=== PATIENT | male | born 1970 | race Caucasian/White ===

== ENCOUNTER 2019-09-11 14:43 | Emergency (ER) | payer OTHER, SELFPAY ==
--- NOTE | 2019-09-11 14:42 | ECG_ITS ---
APPROVED REPORT Exam: Resting ECG HR:72 bpm ECG Measurements Heart Rate 72 AXES OK 124 P 35 QRSd 98 QRS -8 QT 388 T 24 QTc 424 <Conclusion> Sinus rhythm with sinus arrhythmia with occasional premature ventricular complexes Incomplete RBBB Otherwise normal ECG Electronically signed by : Bi Bernard, 09/12/2019 08:57:03
[2019-09-11 14:45] VITALS: BP 135/90; PULSE 71; RESP 16; TEMP 36.6; O2SAT 98; BMI 41.8
--- NOTE | 2019-09-11 14:52 | XR_ITS ---
PROCEDURE: XR CHEST PORTABLE CLINICAL HISTORY: chest pain , Nonsmoker COMPARISON: CXR CHEST(2 VIEWS-NOT PORTABLE) from 08/22/2015 FINDINGS: The cardiomediastinal silhouette and pulmonary vascularity are within normal limits. The lungs are clear without infiltrates, suspicious nodules, or pleural effusions. No acute bony abnormalities. IMPRESSION: No acute findings. Dictated by: Dr. Jelani Law MD 09/11/2019 16:[address] Jelani Law MD in [facility] 09/11/2019 16:03
[2019-09-11 14:57] VITALS: BP 135/95; PULSE 84; O2SAT 95
--- NOTE | 2019-09-11 14:57 | [facility].EDCP ---
ED Disposition Clinical Impression: Aortic dissection Qualifiers: Aortic location: thoracic aorta Qualified Code(s): I71.01 - Dissection of thoracic aorta Chest pain Qualifiers: Chest pain type: precordial pain Qualified Code(s): R07.2 - Precordial pain Disposition: Xfer Short-Term Hosp Condition on Discharge: Critical - Critical Care Critical Care Time: Yes Attestation: On 09/11/19, the high probability of a clinically significant, sudden or life threatening deterioration of the following system(s) required my full and direct attention, intervention and personal management. The time I documented below is in addition to time spent performing reported procedures but includes the following listed in this critical care notation. Total Critical Care Time: 40 Vital system(s) involved:: Circulatory Failure, Central Nervous System, Metabolic Failure, Respiratory Failure, Renal Failure, Shock (Hemorrhage) My critical care processes included: Assessment & monitoring of V/S, Initial and Re-exams, Data Review/Interpretation, Coordinating Care, Medication Orders and management, Documentation Medical Decision Making - Medical Records Medical records reviewed: Yes: I reviewed the patient's medical records. - [place] Inquiry Pt receiving controlled substance: No Vital Signs: 09/11/19 14:45 09/11/19 14:57 09/11/19 16:14 Temperature 98 F Temperature Source Oral Pulse Rate [Left Radial] 71 84 65 Respiratory Rate 16 Blood Pressure [Right Arm] 135/90 135/95 H 113/74 Blood Pressure Mean [Right Arm] 105 108 87 Blood Pressure Source [Right Arm] Automatic Cuff Automatic Cuff Blood Pressure Position [Right Arm] Sitting Sitting Sitting 02 Sat by Pulse Oximetry 98 95 97 Oxygen Delivery Method Room Air Room Air Room Air 09/11/19 16:32 09/11/19 16:33 Temperature Temperature Source Pulse Rate [Left Radial] 70 78 Respiratory Rate Blood Pressure [Right Arm] 140/89 140/89 Blood Pressure Mean [Right Arm] 106 106 Blood Pressure Source [Right Arm] Automatic Cuff Blood Pressure Position [Right Arm] Sitting Sitting 02 Sat by Pulse Oximetry 97 99 Oxygen Delivery Method Room Air Room Air - Lab Data Lab Results 09/11/19 14:45: WBC 7.3, RBC 5.11, Hgb 15.2, Hct 44.6, MCV 87.3, MCH 29.7, MCHC 34.1, RDW 14.0, Plt Count 215, MPV 7.7, Neut % (Auto) 67.7, Lymph % (Auto) 25.5, [place] % (Auto) 4.1, Eos % (Auto) 2.1, Baso % (Auto) 0.6, Neut # (Auto) 4.9, Lymph # (Auto) 1.9, [place] # (Auto) 0.3, Eos # (Auto) 0.2, Baso # (Auto) 0.0 09/11/19 14:45: Sodium 139, Potassium 4.2, Chloride 104, Carbon Dioxide 30, Anion Gap 9.2, BUN 18, Creatinine 1.10, Estimated Creat Clear 82, Estimated GFR 71, Est GFR ( Amer) 86, Glucose 119 H, Calcium 9.1, Troponin I < 0.01 Result diagrams: 09/11/19 14:45 09/11/19 14:45 Orders (Tests/Meds): ED MEDICATIONS Discontinued Medications Generic Name Dose Route Start Last Admin Trade Name Freq PRN Reason Stop Dose Admin Aspirin 324 mg 09/11/19 14:53 09/11/19 14:55 Aspirin 81mg Chewable Tablet PO 09/11/19 14:54 324 mg ONCE ONE Administration Ioversol 100 ml 09/11/19 15:38 09/11/19 15:42 Rad-Optiray 350 100ml Vial IV 09/11/19 15:39 100 ml ONCE ONE Administration Protocol Nitroglycerin 0.4 mg 09/11/19 14:53 09/11/19 14:55 Nitrostat 0.4mg Sl Tablet SL 09/11/19 14:54 0.4 mg ONCE ONE Administration Sodium Chloride 50 ml 09/11/19 15:38 09/11/19 15:42 Rad-Ns 50ml Vial IV 09/11/19 15:39 50 ml ONCE ONE Administration Sodium Chloride 10 ml 09/11/19 15:38 09/11/19 15:42 Rad-Saline Flush 10ml Syringe IV 09/11/19 15:39 10 ml ONCE ONE Administration ORDERS Category Date Time Status PTT [Activated Partial Thrombo Time] Stat Lab 09/11/19 14:45 Received Prothrombin Time INR Stat Lab 09/11/19 14:45 Received Troponin I Q3H Lab 09/11/19 18:00 Ordered Troponin I Q3H Lab 09/11/19 21:00 Ordered - CT Data Time Received: 16:[address] Revi
[2019-09-11 14:59] LABS: Basophils % 0.6 % (0.1-2.0); Eosinophils # 0.2 K/mm3 (0.0-0.4); Eosinophils % 2.1 % (0.1-12.0); Hematocrit 44.6 % (42.0-52.0); Hemoglobin 15.2 g/dL (14.1-18.0); Lymphocytes # 1.9 K/mm3 (0.7-4.5); Lymphocytes % 25.5 % (10-50); Mean Corpuscular HGB Conc 34.1 g/dL (31.8-35.4); Mean Corpuscular Hemoglobin 29.7 pg (27.0-31.2); Mean Corpuscular Volume 87.3 fl (80-94); Mean Platelet Volume 7.7 fl (7.4-10.4); Monocytes # 0.3 K/mm3 (0.1-1.0); Monocytes % 4.1 % (1.7-9.3); Neutrophils # 4.9 K/mm3 (1.8-7.8); Neutrophils % 67.7 % (37.0-80.0); Platelet Count 215 K/mm3 (142-424); Red Blood Count 5.11 M/mm3 (4.60-6.20); White Blood Count 7.3 K/mm3 (4.8-10.8)
[2019-09-11 15:01] LABS: Chloride 104 mmol/L (98-107); Potassium 4.2 mmoL/L (3.5-5.1); Sodium 139 mmol/L (136-145)
[2019-09-11 15:04] LABS: Anion Gap 9.2 mEq/L (5-15); Blood Urea Nitrogen 18 mg/dl (9-20); Calcium 9.1 mg/dl (8.4-10.2); Carbon Dioxide 30 mmol/L (22.0-30.0); Creatinine Clearance Estimated 82 mL/min (50-200); Estimated Glomerular Filt Rate 71 ml/min (>60); GFR (African American) 86 ML/MIN (>60); Glucose 119 mg/dl (74-100)
--- NOTE | 2019-09-11 15:13 | CT_ITS ---
PROCEDURE: CT ANGIO CHEST CLINCIAL INDICATION: dissection? Chest pain since Thursday, previous history of cardiac stents COMPARISON: No exams were available for comparison TECHNIQUE: IV Contrast: 70ML OPTIRAY 350 Axial images obtained with sagittal and coronal reformats. All CT scans at the facility use one or more dose reduction, viz: automated exposure control, ma/kV adjustment per patient size (including targeted exams where dose is matched to indication, i.e. head), or iterative reconstruction technique. FINDINGS: HEART AND MEDIASTINAL STRUCTURES: There is excellent contrast opacification. Overall cardiac size is normal. There is what appears to be a small aortic dissection ascending aorta best seen on image 39 and 40 axial sequence. It apparently does not extend into the descending aorta. There is no CT evidence of pulmonary emboli. LUNGS AND PLEURAL SPACES: The lung duran are clear of active infiltrate. There is no pleural fluid. BONY STRUCTURES: There moderate multilevel degenerate changes mid lower thoracic spine. UPPER ABDOMEN: Unremarkable. ADDITIONAL FINDINGS: No other significant abnormalities. IMPRESSION: Probable small aortic dissection lower ascending aorta, no evidence of pulmonary emboli or other significant abnormality. Report was called to the emergency room physician at the time of the reading approximately 4:15 p.m.. Dictated by: Dr. Jelani Law MD 09/11/2019 16:[address] Jelani Law MD in [facility] 09/11/2019 16:24
[2019-09-11 15:16] LABS: Troponin I < 0.01 ng/ml (0.00-0.034)
[2019-09-11 16:14] VITALS: BP 113/74; PULSE 65; O2SAT 97
--- NOTE | 2019-09-11 16:16 | PC.NURSE ---
ER MD spoke with radiologist at this time
--- NOTE | 2019-09-11 16:16 | PC.NURSE ---
Calling [facility] at this time.
--- NOTE | 2019-09-11 16:20 | PC.NURSE ---
Cardiovascular Surgeon to return call.
--- NOTE | 2019-09-11 16:31 | PC.NURSE ---
ALAINA HUERTA speaking with Dr. Carlton at [facility]
[2019-09-11 16:32] VITALS: BP 140/89; PULSE 70; O2SAT 97
[2019-09-11 16:33] VITALS: BP 140/89; PULSE 78; O2SAT 99
--- NOTE | 2019-09-11 16:35 | PC.NURSE ---
Dr Loyola accepted pt.
[2019-09-11 16:37] LABS: Activated Partial Thrombo Time 28.8 seconds (23.6-34.0); INR 0.98 (0.9-1.1); Prothrombin Time 10.1 seconds (9.4-11.8)
[2019-09-11 17:09] LABS: Coronavirus 19 IgG Antibody Negative (Negative); Coronavirus 19 IgM Antibody Negative (Negative)
--- NOTE | 2019-09-11 17:22 | PC.NURSE ---
report called to [facility]
[2019-09-11 17:27] VITALS: BP 140/89; PULSE 70; RESP 16; TEMP 36.6; O2SAT 98
== END 2019-09-11 17:28 | disposition short-term general hospital (02) ==
PROVIDERS: Emergency Provider Emergency Medicine
DX: R07.2 Precordial pain (principal); I71.01 Dissection of thoracic aorta; I10 Essential (primary) hypertension; E78.5 Hyperlipidemia, unspecified; I25.10 Atherosclerotic heart disease of native coronary artery without angina pectoris; Z88.0 Allergy status to penicillin; Z88.2 Allergy status to sulfonamides
CPT/HCPCS: 71045; 71275; 80048; 84484; 85025; 85610; 85730; 86328; 93005; 99285; Q9967